=== PATIENT | male | born 1950 | race Caucasian/White ===

== ENCOUNTER 2025-02-05 10:20 | Day surgery (SDC) | payer MEDICARE, SELFPAY ==
[2025-02-05] VITALS (29 sets, daily range): BP systolic 108–162; BP diastolic 64–103; PULSE 68–105; RESP 9–21; TEMP 35.4–36.7; O2SAT 92–97; BMI 40.8
[2025-02-05] MEDS: ACETAMINOPHEN 500 MG TABLET 1000 MG PO ×3 (10:45→22:50)
[2025-02-05] MEDS: OXYCODONE (CR) 10 MG TAB.ER.12H PO (10:45)
[2025-02-05] MEDS: SODIUM CHLORIDE 0.9 % (FLUSH) 10 ML SYRINGE IVF ×2 (11:00→21:19)
[2025-02-05] MEDS: LACTATED RINGERS 1000 ML 1,000 ML 100 ML IV ×2 (11:00→14:01)
--- NOTE | 2025-02-05 11:56 | W.PM.H&PU ---
History & Physical Update History & Physical Update H&P Reviewed and patient assessed: No changes noted
[2025-02-05] MEDS: MIDAZOLAM HCL 1 MG/ML inj IVP (12:49)
[2025-02-05] MEDS: fentaNYL 100 MCG/2 ML inj IVP (12:49)
--- NOTE | 2025-02-05 12:49 | SUR.PREOP ---
TIME?OUT:?1249 PT/RN/MDA?VERIFICATION?OF?SURGICAL?SITE,?PROCEDURE,?AND?CONSENT OBTAINED?PRIOR?TO?INVASIVE?PROCEDURE.
[2025-02-05] MEDS: TRANEXAMIC ACID 100 MG/ML INJ 1000 MG IV (13:10)
[2025-02-05] MEDS: CEFAZOLIN 2 GM in 0.9 % SODIUM CHLORIDE Mini-bag 100 ML IVPB (13:15)
--- NOTE | 2025-02-05 13:19 | CRLHL7_ITS ---
For Patients: As a result of the Cures Act, medical imaging exams and procedure reports are released immediately into your electronic medical record. You may view this report before your referring provider. If you have questions, please contact your health care provider. Indication: Postop Technique: Two views left knee Findings/Impression: Hardware from a left total knee arthroplasty is in satisfactory position. Bone alignment is normal. No sign of acute fracture. Postop changes are within normal limits. Dictated by Kane Newell MD @ 02/06/2025 8:49:21 AM (Electronically Signed)
--- NOTE | 2025-02-05 14:08 | W.PM.NB ---
Nerve Block Nerve Block Time Seen by Provider: 12:50 Date Seen: 02/05/25 Type of block requested by surgeon for post-operative analgesia: adductor canal Side: left Time out performed: Yes Verification of patient name: Yes Verification of date of : Yes Site marking: site marked Name of person performing procedure: Jose Alfredo Continuous monitoring Was continuous monitoring of O2 sat, B/P, gambling monitor, recorded every 15 minutes?: Yes Procedure Checklist: sterile prep, needles and gloves Ultrasound guided. Images saved: Yes Medications given in 5ml increments after negative aspiration: Marcaine %: 0.25 mL: 15 Needle gauge: 20 Precedex (mcg): 25 Patient tolerated procedure well: Yes Block Charges Block Charge (with Pro Fee): Femoral Nerve Use of Ultrasound Machine for Block: Yes- US Guidance/pain block
--- NOTE | 2025-02-05 14:09 | P.ANES_ITS ---
Anesthesia Charges Start Date/Time Anesthesia Start Date: 02/05/25 Anesthesia Start Time: 12:58 Stop Date/Time Anesthesia Stop Date: 02/05/25 Anesthesia Stop Time: 15:39 Summary Extremes of Age - Over 70 or under 1: MDA Coding CPT Codes CPT Codes: ANESTH KNEE ARTHROPLASTY - 45400 ([id number]) P3 - PATIENT W/SEVERE SYS DISEASE, QK - RIP SAW OPERATOR 2-4 CNCRNT ANES PROC, QX - COPING MACHINE ASSEMBLER SVC W/ MD MED DIRECTION Additional Codes: Summary - Extremes of Age - Over 70 or under 1: MDA ([id number])
--- NOTE | 2025-02-05 14:09 | W.PM.NB ---
Nerve Block Nerve Block Time Seen by Provider: 12:50 Date Seen: 02/05/25 Type of block requested by surgeon for post-operative analgesia: geniculars Side: left Time out performed: Yes Verification of patient name: Yes Verification of date of : Yes Site marking: site marked Name of person performing procedure: Jose Alfredo Continuous monitoring Was continuous monitoring of O2 sat, B/P, front desk monitor, recorded every 15 minutes?: Yes Procedure Checklist: sterile prep, needles and gloves Ultrasound guided. Images saved: Yes Medications given in 5ml increments after negative aspiration: Marcaine %: 0.25 mL: 9 Needle gauge: 25 Patient tolerated procedure well: Yes Block Charges Block Charge (with Pro Fee): Genicular Nerve Block
--- NOTE | 2025-02-05 14:09 | W.ANESCHARGE ---
Anesthesia Charges Start Date/Time Anesthesia Start Date: 02/05/25 Anesthesia Start Time: 12:58 Stop Date/Time Anesthesia Stop Date: 02/05/25 Anesthesia Stop Time: 15:39 Summary Extremes of Age - Over 70 or under 1: MDA Coding CPT Codes CPT Codes: ANESTH KNEE ARTHROPLASTY - 48058 ([id number]) P3 - PATIENT W/SEVERE SYS DISEASE, QK - CATSHOVEL DRIVER 2-4 CNCRNT ANES PROC, QX - PEDICURIST SVC W/ MD MED DIRECTION Additional Codes: Summary - Extremes of Age - Over 70 or under 1: MDA ([id number])
--- NOTE | 2025-02-05 15:00 | P.ORPRC_ITS ---
Procedure Note Date of procedure: 02/05/25 Procedure: PREOPERATIVE DIAGNOSIS: 1. Left knee osteoarthritis, primary, severe 2. Morbid obesity-BMI 40.9 POSTOPERATIVE DIAGNOSIS: 1. Left knee osteoarthritis, primary, severe 2. Morbid obesity-BMI 40.9 PROCEDURE: 1. Left total knee arthroplasty - subvastus; modifier 22 as there was 33% added time and difficulty for this case due to patient's increased body mass index (BMI 40.9) as well as increased stiffness of tissues which necessitated increased time to mobilize tissue, increased number of cuts to balance the knee, and a tibial stem to offload the tibia to improve longevity of the implants. SURGEON: Daron Voss MD. [employer] SUPERVISOR: AMIE Hazel - Of note, a skilled floor covering printer assistant was critical for this case to aid in patient positioning, tissue retraction, limb manipulation/positioning, and closure. ANESTHESIA: Spinal anesthetic EBL: 50ml IMPLANTS: DePuy J&J all cemented TKA - Attune PS femur size 8 Size 7 tibia ([id number] stem) 5 poly spacer 41mm patella TOURNIQUET: 120 minutes at 300 torr COMPLICATIONS: None evident INDICATIONS: The patient is a pleasant 74-year-old male who has experienced severe left knee pain and difficulty bearing weight. Workup included x-rays which revealed severe osteoarthrosis in the knee. Given the deformity, the dysfunction, and the pain, as well as the failure of nonoperative management, recommendation was made for surgery. FINDINGS: Full-thickness chondral loss diffusely throughout the medial, lateral, and to a lesser degree patellofemoral compartments. Large effusion upon entering the joint. Pre operative flexion contracture of 25?. Preoperative range of motion 25-110?. DESCRIPTION OF PROCEDURE: Following a thorough discussion of risks, benefits, and alternatives consent was obtained and the left knee was marked. The patient was brought to the operating room and placed supine on the operating table. Induction of anesthesia was undertaken. 3 g IV Ancef and 1 g tranexamic acid was administered within 1 hr of incision preoperatively. Proper time-out was performed identifying proper patient, site, procedure. The operative extremity was prepped and draped in the appropriate sterile fashion using ChloraPrep after the patient was positioned supine with all bony prominences well padded. A longitudinal, anterior, midline skin incision was made starting approximately 3cm proximal to the superior pole of the patella and advanced distal to the tibial tubercle. A subvastus approach was utilized. A medial subperiosteal sleeve was created with knife, smith elevator and curved osteotome. The retropatellar fatpad was resected and the synovium in the suprapatellar pouch excised to visualize the anterior femoral cortex. Femoral preparation was performed via an intramedullary guide. Step drill allowed access into the femoral canal. The distal cutting guide was placed with 5? of valgus and 12 mm cut on the distal femur due to a 25?+ flexion contracture. Femur was sized using a posterior referencing guide in 3? of external rotation. This found have a best fit with the sizing noted above. The 4 in 1 cutting block was then placed, and the distal femur shaped accordingly. The box cut was then created and the trial implant inserted to confirm appropriate fit. We turned our attention to the proximal tibia. Intramedullary guide was utilized for cutting with the goal of being 90 degree cut from the mechanical axis of the tibia in the varus/valgus plane utilizing tibial crest as the primary alignment. Initially a 4 mm resection was performed from the medial tibial plateau. An additional 6 mm did require resection to achieve appropriate balance. Ultimately, balancing was achieved in both flexion and extension in both varus and valgus. The knee was able to achieve full extension as well comfortably. The patella was initially measured and found have a thickness of 26 mm. It was resected back to approximately 14.5 mm. It was sized to be a best fit with as noted above. This was drilled, trial placed. All trials were placed and found to have an excellent stability and balance. At this stage, trial implants were removed, the knee was thoroughly irrigated with normal saline, and the cement was mixed. After irrigation, the knee was thoroughly dried, and cement placed, with the real tibial and femoral implants placed along with the patella. Trial poly spacer was placed and confirmed to have excellent range of motion and full extension, and the real poly spacer opened and inserted. All extra cement was removed, and a 3 min Betadine soak performed. Finally, a final irrigation round with normal saline was performed. Closure performed with 0 PDS and #0 Stratafix for the quad tendon/retinaculum. 2-0 Vicryl/Stratafix for the subcutaneous and 4-0 Monocryl for subcuticular closure. Dressings were applied and the patient was awoken from anesthesia after the tourniquet deflated and transferred the PACU in stable condition. A skilled floor covering printer assistant was critical for this case to aid in patient positioning, tissue retraction, bone exposure, limb manipulation/positioning, patient safety, and closure. * Again, 33% added time and difficulty for this case due to patient's increased body mass index (BMI 40.9) as well as increased stiffness of tissues which necessitated increased time to mobilize tissue, increased number of cuts to balance the knee, and a tibial stem to offload the tibia to improve longevity of the implants given his morbid obesity. PLAN: 1. Weight bear as tolerated operative extremity. 2. 23 hr perioperative antibiotics. 3. Ice. 4. PT/OT consults for ambulation assistance/mobility education. 5. Social work consult for discharge planning. 6. DVT prophylaxis with at SCDs and aspirin twice daily.
--- NOTE | 2025-02-05 15:39 | P.ANES_ITS ---
Anesthesia Charges Start Date/Time Anesthesia Start Date: 02/05/25 Anesthesia Start Time: 12:58 Stop Date/Time Anesthesia Stop Date: 02/05/25 Anesthesia Stop Time: 15:39 Coding CPT Codes CPT Codes: ANESTH KNEE ARTHROPLASTY - 07523 ([id number]) P3 - PATIENT W/SEVERE SYS DISEASE, QK - ONCOLOGY REP SPECIALIST 2-4 CNCRNT ANES PROC, QX - RAILROAD ENGINEER SVC W/ MD MED DIRECTION
--- NOTE | 2025-02-05 15:39 | W.ANESCHARGE ---
Anesthesia Charges Start Date/Time Anesthesia Start Date: 02/05/25 Anesthesia Start Time: 12:58 Stop Date/Time Anesthesia Stop Date: 02/05/25 Anesthesia Stop Time: 15:39 Coding CPT Codes CPT Codes: ANESTH KNEE ARTHROPLASTY - 57985 ([id number]) P3 - PATIENT W/SEVERE SYS DISEASE, QK - HR ASSOCIATE 2-4 CNCRNT ANES PROC, QX - RESEARCH ASSISTANT MEMBER SVC W/ MD MED DIRECTION
[2025-02-05] MEDS: HYDROmorphone 0.5 mg/0.5 ml inj IVP ×2 (16:56→18:12)
--- NOTE | 2025-02-05 19:24 | PM.IMCN1 ---
Date of Consult Patient: Christine Patient Consult date: 02/05/25 Requesting Physician: Orthopedics Primary Care Provider: Shelly Contreras MD Consult Narrative Reason for consult: DM2, HTN, h/o PE Narrative: Eldon Salazar is a 74 year old male with a h/o Factor V Leiden, saddle PE (2019), DMtype2, HTN, hyperlipidemia, and obesity who underwent an elective left total knee arthroplasty today by Dr. Voss. He is doing well. Pain in the knee is 3/10. He denies CP or SOB. Review of Systems Status of ROS: Reports: 6 or more systems reviewed and unremarkable except as noted in History and below [facility] Medical History (Updated 02/05/25 @ 19:55 by Ivory Haider MD) Prolonged Q-T interval on ECG ?R94.31 - Abnormal electrocardiogram [ECG] [EKG] (ICD-10) Obesity ?E66.9 - Obesity, unspecified (ICD-10) Right thyroid nodule ?E04.1 - Nontoxic single thyroid nodule (ICD-10) Vitamin D deficiency ?E55.9 - Vitamin D deficiency, unspecified (ICD-10) Mixed hyperlipidemia ?E78.2 - Mixed hyperlipidemia (ICD-10) Essential hypertension ?I10 - Essential (primary) hypertension (ICD-10) Pulmonary embolism (05/25/20) ?I26.99 - Other pulmonary embolism without acute cor pulmonale (ICD-10) Factor V Leiden ?D68.51 - Activated protein C resistance (ICD-10) Uric acid kidney stone (2018) ?N20.0 - Calculus of kidney (ICD-10) Type 2 diabetes mellitus ?E11.9 - Type 2 diabetes mellitus without complications (ICD-10) Surgical History (Updated 02/05/25 @ 19:56 by Ivory Haider MD) H/O wisdom tooth extraction ?K08.409 - Partial loss of teeth, unspecified cause, unspecified class (ICD-10) S/P tendon repair ?Z98.890 - Other specified postprocedural states (ICD-10) H/O cystoscopy ?Z98.890 - Other specified postprocedural states (ICD-10) History of esophagogastroduodenoscopy (EGD) ?Z98.890 - Other specified postprocedural states (ICD-10) Hx of colonoscopy ?Z98.890 - Other specified postprocedural states (ICD-10) Cataract extraction status of left eye (~2009) ?Z98.42 - Cataract extraction status, left eye (ICD-10) History of arthroplasty of left knee (02/05/25) ?Z96.652 - Presence of left artificial knee joint (ICD-10) Family History (Updated 02/05/25 @ 19:31 by Ivory Haider MD) Other Adopted Social History (Updated 02/05/25 @ 19:37 by Ivory Haider MD) Narrative: -Adi 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 adopted, unknown family medical history What is your current living situation?: I presently have a place to live Problems where you live: no known problems In the past 12 months, utilities in danger of being shut off: no In past 12 months, lack of transportation kept you from medical appts, meetings, work, or getting things needed for daily living: no In the past 12 mos, have been you worried that your food would run out before you had money to buy more?: never true In the past 12 mos, the food you bought just didn't last and you didn't have money to buy more?: never true Highest level of school completed/degree received: 9th grade Smoking Status: Never smoker Do you use any of these nicotine containing products: None Second hand tobacco smoke exposure: No How often do you have a drink containing alcohol: monthly or less Alcohol type: wine How many standard drinks containing alcohol do you have on a typical day: 1 or 2 How often do you have six or more drinks on one occasion: Never AUDIT-C Alcohol total score: 1 Non-prescribed substance use: denies use Caffeine: No How often does anyone, including family, friends and others, physically hurt you: never How often does anyone, including family, friends and others, insult or talk down to you: never How often does anyone, including family, friends and others, threaten you with harm: never How often does anyone, including family, friends and others, scream or curse at you: never service: No Meds Home Medications and Allergies Home Medications ?Medication ?Instructions ?Recorded ?Confirmed ?Type apixaban 5 mg tablet (Eliquis) 5 mg PO BID 01/14/25 02/05/25 History atorvastatin 40 mg tablet 40 mg PO QPM 01/14/25 02/05/25 History cholecalciferol (vitamin D3) 50 50 mcg PO QDAY 01/14/25 02/05/25 History mcg (2,000 unit) capsule (Vitamin D3) famotidine 20 mg tablet 20 mg PO BID 01/14/25 02/05/25 History lisinopril 40 mg tablet 40 mg PO DAILY 01/14/25 02/05/25 History magnesium 250 mg tablet 500 mg PO QDAY 01/14/25 02/05/25 History melatonin 10 mg tablet 10 mg PO QHS 01/14/25 02/05/25 History metformin 1,000 mg tablet 1,000 mg PO DAILY 01/14/25 02/05/25 History rfnkfvca-qt-wsxft 300 mcg-K 60 1 tab PO QDAY 01/14/25 02/05/25 History mcg-lycop 600 mcg-lutein 300 mcg tablet (Centrum Silver Men) potassium citrate 10 mEq (1,080 10 meq PO DAILY 01/14/25 02/05/25 History mg) tablet,extended release psyllium husk 3.4 gram/5.4 gram 2 tsp PO BID 01/14/25 02/05/25 History oral powder (Metamucil) triamterene 37.5 1 cap PO QAM 01/14/25 02/05/25 History mg-hydrochlorothiazide 25 mg capsule Allergies Allergy/AdvReac Type Severity Reaction Status Date / Time COVID-19 (SARS-CoV-2) Allergy Severe See Verified 02/05/25 10:31 vaccine, efren Comments Exam Narrative: Exam Narrative: General: No acute distress. Awake alert oriented x3. HEENT: Normocephalic atraumatic, pupils equally round and reactive to light and accommodation. Oropharynx clear. Mucous membranes are moist. No cervical lymphadenopathy, thyromegaly or carotid bruits. No JVD. Cardiovascular: Regular rate and rhythm. No murmurs, gallops, or rubs. Chest: No increased work of breathing. Clear to auscultation bilaterally. No crackles or wheezes. Abdomen: Bowel sounds present. Soft, nondistended, nontender. No hepatosplenomegaly or masses. Extremities: Left knee bandage is clean, dry, and intact. No edema, no cyanosis or clubbing. Skin: No jaundice, no pallor, no rashes on visible skin. Const: Vital Signs, click to edit/add: Vital Signs - 24 hr 02/05/25 11:00 02/05/25 12:50 02/05/25 12:55 Temperature 98.1 F Pulse Rate 105 H 87 92 Respiratory Rate 16 16 16 Blood Pressure 140/81 H 129/79 141/66 H Pulse Oximetry 95 97 95 Oxygen Delivery Me thod Room Air Nasal Cannula Nasal Cannula Oxygen Flow Rate 2 2 02/05/25 15:36 02/05/25 15:38 02/05/25 15:39 Temperature 97.2 F L Pulse Rate 91 85 89 Respiratory Rate 21 15 Blood Pressure 108/64 Pulse Oximetry 94 96 96 Oxygen Delivery Me thod Oxygen Flow Rate 02/05/25 15:42 02/05/25 15:43 02/05/25 15:45 Temperature 97.4 F L Pulse Rate 89 92 93 Respiratory Rate 10 L 21 10 L Blood Pressure 112/68 Pulse Oximetry 93 94 93 Oxygen Delivery Me thod Room Air Oxygen Flow Rate 02/05/25 15:46 02/05/25 15:52 02/05/25 15:53 Temperature Pulse Rate 88 87 87 Respiratory Rate 11 L 9 L 20 Blood Pressure 111/67 119/69 Pulse Oximetry 94 92 93 Oxygen Delivery Me thod Oxygen Flow Rate 02/05/25 15:57 02/05/25 15:58 02/05/25 16:00 Temperature 97.3 F L Pulse Rate 86 84 81 Respiratory Rate 13 13 15 Blood Pressure 112/75 Pulse Oximetry 92 93 93 Oxygen Delivery Me thod Oxygen Flow Rate 02/05/25 16:02 02/05/25 16:06 02/05/25 16:15 Temperature 96 F L Pulse Rate 79 75 78 Respiratory Rate 11 L 13 14 Blood Pressure 123/75 129/75 127/77 Pulse Oximetry 94 94 92 Oxygen Delivery Me thod Room Air Oxygen Flow Rate 02/05/25 16:30 02/05/25 16:45 02/05/25 17:00 Temperature 95.8 F L 96 F L 96 F L Pulse Rate 76 74 74 Respiratory Rate 16 18 16 Blood Pressure 142/82 H 122/79 154/92 H Pulse Oximetry 94 93 94 Oxygen Delivery Me thod Room Air Room Air Room Air Oxygen Flow Rate 02/05/25 17:15 02/05/25 17:30 02/05/25 18:00 Temperature 95.9 F L 96 F L 96.2 F L Pulse Rate 68 70 77 Respiratory Rate 16 14 14 Blood Pressure 158/103 H 155/82 H 153/90 H Pulse Oximetry 95 93 96 Oxygen Delivery Me thod Room Air Room Air Room Air Oxygen Flow Rate Assessment and Plan Assessment and plan (1) History of arthroplasty of left knee: Problem comment: Left total knee arthroplasty - subvastus (02/05/25, Dr. Voss) - routine post op cares - PT and OT evaluations are pending - VTE prophylaxis with therapeutic Eliquis due to Factor V Leiden status. I spoke with Porfirio from Ortho who is okay with me restarting this in the morning. Status: Acute (2) Osteoarthritis of left knee: Problem comment: Severe Status: Chronic (3) Factor V Leiden: Problem comment: - history of saddle PE, on chronic anticoagulation Status: Chronic (4) Type 2 diabetes mellitus: Problem comment: - 10/21/2024 hemoglobin A1c 7% - restart metformin in the morning Status: Chronic (5) Essential hypertension: Problem comment: - Continue lisinopril, triamterene/HCTZ with hold parameters for low BP Status: Chronic (6) Mixed hyperlipidemia: Problem comment: - continue statin Status: Chronic (7) Obesity: Problem comment: BMI 41.3 Status: Chronic
--- NOTE | 2025-02-05 19:38 | PC.NURSE ---
End of shift: VS WNL. Patient tolerating water. Denies N/V/SOB. Rates pain from a 5-6 pain meds offered and utilized. Ice pack applied. was at bedside. Dressing C/D/I. Pt has not been up yet or felt the urge to void. Lung sounds clear.
[2025-02-05] MEDS: CEFAZOLIN 3 GM in 0.9 % SODIUM CHLORIDE 100 ml 100 ML IVPB (19:58)
[2025-02-05] MEDS: OXYCODONE 5 MG TABLET PO (20:04)
[2025-02-05] MEDS: PSYLLIUM HUSK (WITH SUGAR) 12 GM PACKET PO (21:00)
[2025-02-05] MEDS: FAMOTIDINE 20 MG TABLET PO (21:19)
[2025-02-05] MEDS: SENNOSIDES 1 TAB TABLET 2 TAB PO (21:19)
[2025-02-06 03:00] VITALS: BP 149/75; PULSE 81; RESP 16; TEMP 36.2; O2SAT 96
[2025-02-06] MEDS: CEFAZOLIN 3 GM in 0.9 % SODIUM CHLORIDE 100 ml 100 ML IVPB (03:00)
[2025-02-06] MEDS: OXYCODONE 5 MG TABLET PO ×2 (03:02→08:13)
[2025-02-06] MEDS: ACETAMINOPHEN 500 MG TABLET 1000 MG PO ×2 (04:37→11:15)
--- NOTE | 2025-02-06 06:33 | PC.NURSE ---
End of shift note [id number]: Pt A&Ox4 and able to make needs known. Dressing to L anterior knee C/D/I. CMS to LLE intact. Pt slept in recliner overnight per home routine. He has been continent of bladder using toilet. No c/o CP or vomiting noted with pt denying nausea when asked. Pt transferring with assist of 1 using FWW and gait belt. VSS- pt has been afebrile and on RA throughout the shift. L knee pain has been managed with rest, repositioning, active ice and PRN and scheduled pain medications. Call light within reach.
[2025-02-06 07:00] VITALS: BP 152/68; PULSE 98; RESP 16; TEMP 36.7; O2SAT 94
[2025-02-06 07:05] LABS: Basophils Absolute Auto 0.01 K/uL (0.00-0.30); Basophils Percent Auto 0.1 % (0.0-3.0); Hematocrit 39.3 % (37.0-53.0); Hemoglobin* 12.5 gm/dL (13.5-17.5); Immature Granulocytes Abs Auto 0.01 K/uL (0.00-0.30); Immature Granulocytes Pct Auto 0.1 %; Lymphocytes Percent Auto 7.7 % (20-44); Mean Corpuscular HGB Conc 32 gm/dL (32-36); Mean Corpuscular Hemoglobin 29 pg (26-34); Mean Corpuscular Volume 92 fL (80-100); Monocytes Percent Auto 9.3 % (0.0-11.0); Neutrophils Percent Auto 81.8 % (42.0-72.0); Platelet Count* 236 K/uL (140-440); RDW Coefficient of Variation % 12.5 % (11.5-15.5); Red Blood Count 4.29 m/uL (4.30-5.90); White Blood Count* 9.56 K/uL (4.50-11.00)
[2025-02-06 07:07] LABS: Slide Review Reflex No
[2025-02-06 07:18] LABS: Sodium* 137 mmol/L (135-149)
[2025-02-06 07:19] LABS: Potassium* 4.6 mmol/L (3.6-5.1)
[2025-02-06 07:22] LABS: Blood Urea Nitrogen* 23 mg/dL (7-30); Creatinine* 0.9 mg/dL (0.5-1.5); Est. Creatinine Clearance* 71.02; Estimated Glomerular Filt Rate 89 ml/min
[2025-02-06 07:30] VITALS: PULSE 98; RESP 16; O2SAT 94
[2025-02-06] MEDS: PSYLLIUM HUSK (WITH SUGAR) 12 GM PACKET PO (08:10)
[2025-02-06] MEDS: SENNOSIDES 1 TAB TABLET 2 TAB PO (08:11)
[2025-02-06] MEDS: APIXABAN 5 MG TABLET PO (08:11)
[2025-02-06] MEDS: TRIAMTERENE-HCTZ 37.5-25 MG TB 1 TAB PO (08:13)
[2025-02-06] MEDS: METFORMIN 1,000 MG TABLET 1000 MG PO (08:13)
[2025-02-06] MEDS: FAMOTIDINE 20 MG TABLET PO (08:14)
[2025-02-06] MEDS: lisinopriL 20 MG TABLET 40 MG PO (08:14)
[2025-02-06] MEDS: MULTIVITAMIN/MINERALS 1 TABLET 1 TAB PO (08:14)
--- NOTE | 2025-02-06 09:29 | PM.ORPN ---
Subjective Subjective Date Seen: 02/06/25 Principal diagnosis: Status postop day 1 left total knee arthroplasty Interval history: Patient reports doing well. No acute events over night. Low appetite. Pain managed with scheduled and PRN medications, ice. DVT prophylaxis: Apixaban 5 mg twice daily, chronic medication due to history of saddle pulmonary embolism and factor 5 Leiden disease. The PE was in 2019., SCDs, walking. Denies fevers, chills, aches, N/V, CP, SOB/THURST[place], or lightheadedness. Ortho Exam Narrative Exam Narrative: -Patient appears comfortable; no apparent acute distress -Alert and oriented times 3 -Operative knee mildly swollen; soft tissues supple; no ecchymosis; no erythematous streaking Warmth appropriate -Surgical dressing clean, dry, intact; no drainage -Bilateral calfs soft; no significant swelling, edema, tenderness, erythema, discoloration, warmth, or palpable cords -2+ DP/PT pulses, intact dermatomes and myotomes distally (5/5 strength) -no incentive spirometer in the room Const Vital Signs, click to edit/add: Vital Signs - 24 hr 02/05/25 11:00 02/05/25 12:50 02/05/25 12:55 Temperature 98.1 F Pulse Rate 105 H 87 92 Pulse Rate [Right Pulse Oximeter] Respiratory Rate 16 16 16 Blood Pressure 140/81 H 129/79 141/66 H Blood Pressure [Left Arm] Pulse Oximetry 95 97 95 Oxygen Delivery Method Room Air Nasal Cannula Nasal Cannula Oxygen Flow Rate 2 2 02/05/25 15:36 02/05/25 15:38 02/05/25 15:39 Temperature 97.2 F L Pulse Rate 91 85 89 Pulse Rate [Right Pulse Oximeter] Respiratory Rate 21 15 Blood Pressure 108/64 Blood Pressure [Left Arm] Pulse Oximetry 94 96 96 Oxygen Delivery Method Oxygen Flow Rate 02/05/25 15:42 02/05/25 15:43 02/05/25 15:45 Temperature 97.4 F L Pulse Rate 89 92 93 Pulse Rate [Right Pulse Oximeter] Respiratory Rate 10 L 21 10 L Blood Pressure 112/68 Blood Pressure [Left Arm] Pulse Oximetry 93 94 93 Oxygen Delivery Method Room Air Oxygen Flow Rate 02/05/25 15:46 02/05/25 15:52 02/05/25 15:53 Temperature Pulse Rate 88 87 87 Pulse Rate [Right Pulse Oximeter] Respiratory Rate 11 L 9 L 20 Blood Pressure 111/67 119/69 Blood Pressure [Left Arm] Pulse Oximetry 94 92 93 Oxygen Delivery Method Oxygen Flow Rate 02/05/25 15:57 02/05/25 15:58 02/05/25 16:00 Temperature 97.3 F L Pulse Rate 86 84 81 Pulse Rate [Right Pulse Oximeter] Respiratory Rate 13 13 15 Blood Pressure 112/75 Blood Pressure [Left Arm] Pulse Oximetry 92 93 93 Oxygen Delivery Method Oxygen Flow Rate 02/05/25 16:02 02/05/25 16:06 02/05/25 16:15 Temperature 96 F L Pulse Rate 79 75 78 Pulse Rate [Right Pulse Oximeter] Respiratory Rate 11 L 13 14 Blood Pressure 123/75 129/75 127/77 Blood Pressure [Left Arm] Pulse Oximetry 94 94 92 Oxygen Delivery Method Room Air Oxygen Flow Rate 02/05/25 16:30 02/05/25 16:45 02/05/25 17:00 Temperature 95.8 F L 96 F L 96 F L Pulse Rate 76 74 74 Pulse Rate [Right Pulse Oximeter] Respiratory Rate 16 18 16 Blood Pressure 142/82 H 122/79 154/92 H Blood Pressure [Left Arm] Pulse Oximetry 94 93 94 Oxygen Delivery Method Room Air Room Air Room Air Oxygen Flow Rate 02/05/25 17:15 02/05/25 17:30 02/05/25 18:00 Temperature 95.9 F L 96 F L 96.2 F L Pulse Rate 68 70 77 Pulse Rate [Right Pulse Oximeter] Respiratory Rate 16 14 14 Blood Pressure 158/103 H 155/82 H 153/90 H Blood Pressure [Left Arm] Pulse Oximetry 95 93 96 Oxygen Delivery Method Room Air Room Air Room Air Oxygen Flow Rate 02/05/25 19:00 02/05/25 20:00 02/05/25 21:00 Temperature 96.2 F L 96.2 F L 97.6 F Pulse Rate 80 83 79 Pulse Rate [Right Pulse Oximeter] Respiratory Rate 16 16 16 Blood Pressure 162/85 H 139/67 132/68 Blood Pressure [Left Arm] Pulse Oximetry 95 94 95 Oxygen Delivery Method Room Air Room Air Room Air Oxygen Flow Rate 02/05/25 22:00 02/05/25 23:00 02/05/25 23:00 Temperature Pulse Rate 75 Pulse Rate [Right Pulse Oximeter] Respiratory Rate 16 16 Blood Pressure 137/67 Blood Pressure [Left Arm] Pulse Oximetry 92 92 92 Oxygen Delivery Method Room Air Room Air Oxygen Flow Rate 02/05/25 23:00 02/06/25 03:00 02/06/25 07:00 Temperature 97.2 F L 98.1 F Pulse Rate Pulse Rate [Right Pulse Oximeter] 81 98 Respiratory Rate 16 16 16 Blood Pressure Blood Pressure [Left Arm] 149/75 H 152/68 H Pulse Oximetry 96 94 Oxygen Delivery Method Room Air Room Air Oxygen Flow Rate 02/06/25 07:30 02/06/25 07:30 02/06/25 07:30 Temperature Pulse Rate Pulse Rate [Right Pulse Oximeter] 98 Respiratory Rate 16 16 Blood Pressure Blood Pressure [Left Arm] Pulse Oximetry 94 94 Oxygen Delivery Method Room Air Oxygen Flow Rate Assessment and Plan Assessment and plan (1) History of arthroplasty of left knee: Problem details: Left total knee arthroplasty - subvastus (02/05/25, Dr. Voss) - routine post op cares - PT and OT evaluations are pending - VTE prophylaxis with therapeutic Eliquis due to Factor V Leiden status. I spoke with Porfirio from Ortho who is okay with me restarting this in the morning. Status: Acute (2) Osteoarthritis of left knee: Problem details: Severe Status: Chronic (3) Factor V Leiden: Problem details: - history of saddle PE, on chronic anticoagulation Status: Chronic (4) Type 2 diabetes mellitus: Problem details: - 10/21/2024 hemoglobin A1c 7% - restart metformin in the morning Status: Chronic (5) Essential hypertension: Problem details: - Continue lisinopril, triamterene/HCTZ with hold parameters for low BP Status: Chronic (6) Mixed hyperlipidemia: Problem details: - continue statin Status: Chronic (7) Obesity: Problem details: BMI 41.3 Status: Chronic Plan - Complete 23 hour perioperative antibiotics. - PT/OT consult for education and assistance. - Social work consult for discharge planning - Prescribed analgesics as needed - DVT prophylaxis: Apixaban 5 mg twice daily, walking, and SCDs - Anticipation is for discharge to home with today 02/06/2025 if the patient remains medically stable, pain is controlled, and they are safe with mobilization. - please place incentive spirometry in the patient's room and educate him on its use.
--- NOTE | 2025-02-06 11:57 | PC.NURSE ---
Discharge note: Pt discharged at 1143 via wheelchair with . Pt denies N/V/SOB. VS WNL. Rates pain between a 4-5, pain meds offered and given. IV removed and tip intact. Dressing on left knee is C/D/I. Patient belongings and discharge instructions gone through. 2 ice packs sent home.
== END 2025-02-06 11:43 | disposition home or self-care (01) ==
LOC: OR 10:21 → MEDSURG 10:22
PROVIDERS: PCP Family Medicine; Visit Provider Orthopaedic Surgery Sports Medicine
PROC: (CPT 27447; principal; 2025-02-05 12:15)
DX: M17.12 Unilateral primary osteoarthritis, left knee (principal); E66.01 Morbid (severe) obesity due to excess calories; Z68.41 Body mass index [BMI] 40.0-44.9, adult; G89.18 Other acute postprocedural pain; E11.9 Type 2 diabetes mellitus without complications; I10 Essential (primary) hypertension; R94.31 Abnormal electrocardiogram [ECG] [EKG]; E78.5 Hyperlipidemia, unspecified; D68.51 Activated protein C resistance; Z86.711 Personal history of pulmonary embolism; Z79.01 Long term (current) use of anticoagulants; E66.9 Obesity, unspecified; E04.1 Nontoxic single thyroid nodule; E55.9 Vitamin D deficiency, unspecified; E78.2 Mixed hyperlipidemia; Z79.84 Long term (current) use of oral hypoglycemic drugs
CPT/HCPCS: 27447; 01402; 36415; 64447; 64454; 73560; 76942; 82565; 82962; 84132; 84295; 84520; 85025; 97110; 97116; 97161; 97165; 99100; A9153; A9270; C1776; J0665; J0690; J1171; J2250; J2704; J3010; J7120

== ENCOUNTER 2025-03-20 10:30 | Outpatient (RCR) | payer MEDICARE, SELFPAY ==
--- NOTE | 2025-01-28 14:47 | PT.OPEX ---
PT [place] Out[facility] Eval PT [facility] Outpatient Eval Start: 01/28/25 11:02 Freq: Status: Active Protocol: Document 01/28/25 11:05 MRS (Rec: 01/28/25 14:44 MRS No Response) E-signed By Maranda Caceres DPT Physical Therapy Outpatient Evaluation Insurance Information Recert Due Date 04/30/25 Insurance Name Nam Medical Diagnosis M17.12 Unilateral primary OA L knee Z96.652 Presence of L artificial knee joint Treating Diagnosis M25.562 Pain in Knee Left M25.662 Stiffness in Knee Left Z74.9 Impaired Mobility Imaging Report Information XR L knee= severe L OA Referring MD Daron Voss MD Subjective Preferred Name Samson Subjective Initial subjective: Samson presented to PT eval for pre- op evaluation of left TKA. Samson reports that his knee is worn out and has gotten worse overtime. L TKA scheduled and Samson plans to stay 1 night in the hospital before d/c to home with and starting OP PT on 02/10/25. DOS: 02/05/25 Aggravating factors: walking and standing are limited PMH: Obesity, DM II, HTN Work status: retired Pt goals: Pain Comments currently= 0/10; at worst 7-8/ 10 Date of Last Physician Visit 01/14/25 Date of Next Physician Visit 02/13/25 Date of Surgery (If applicable) 02/05/25 Current Work Status Retired Precautions Weight Bearing Status Full Weight Bearing Therapy Limitations/Systems Review Not Limited Objective Range of Motion Knee Flex: R= 122; L= 108 Knee Ext: R= 0; L= 5 Strength -Knee Ext: R: 5/5, L: 5/5? -Knee Flex: R: 5/5, L: 5/5? -Hip Abd: R: 5/5, L: 5/5? -Hip Add: R: 5/5, L: 5/5? -Hip Ext: R: 5/5, L: 5/5? -Hip Flx: R: 5/5, L: 5/5? Ankle Strength (R/L):? -DF: R: 5/5, L: 5/5? Functional Test Performed & Score LEFS= 21/80 Assessment Assessment/Impression Pt presents with signs and symptoms consistent with left knee OA and has L TKA scheduled. DOS: 02/05/25. Anticipated deficits/ impairments in pain, ROM, and strength. Pt would benefit from skilled PT interventions to facilitate return to PLOF and increase strength, ROM, endurance, balance, and functional mobility.? Primary Functional Limitations Pain, flexibility, functional mobility, functional strength Plan of Care Rehabilitation Potential Good Physical Therapy Goals Within This Session: 1.) Pt will abide by and be able to verbalize all post- surgical restrictions to allow for adequate healing.? 2.) Pt will be give verbal understanding of HEP to help aide in post surgical recovery and rehab. Coordination/Communication With Referral Source Treatment Plan/Direct Interventions Gait Training,Manual Therapy, Neuromuscular Re-ed, Therapeutic Activities, Therapeutic Exercises Frequency/Duration 2-3x/week for 8-12 weeks Patient Will Be Discharged From Therapy Completion of LTG(s),Skills Plateau,Independent w/HEP, Independently Progressing Evaluation Billing Untimed Code Treatment Minutes 30 PT Eval No Charge No Complexity Low Certification Information Initial Certification Date 01/28/25 Ending Certification Date 05/11/25 Provider Signature Required Yes Provider Signature Shows Agreement With POC & Medical Necessity Physician NPI Number Write NPI# Here Physician Comment/Change : Physician Signature & Date Requested Please Sign/Date Here
== END 2025-03-20 15:27 | disposition home or self-care (01) ==
PROVIDERS: PCP Family Medicine; Visit Provider Orthopaedic Surgery Sports Medicine
DX: M17.12 Unilateral primary osteoarthritis, left knee (principal); Z96.652 Presence of left artificial knee joint; Z51.89 Encounter for other specified aftercare
CPT/HCPCS: 97110; 97112; 97140; 97161; 97530